=== PATIENT | male | born 1980 | race American Indian/Alaskan Native ===

== ENCOUNTER 2019-12-01 13:12 | Emergency (ER) | payer SELFPAY ==
--- NOTE | 2019-12-01 14:03 | Event Note ---
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 Further treatment and workup at subsequent clinical providers discretion. Patient/guardian urged not to elope from the ED as their condition may be serious if not clinically assessed and managed. Initial orders include: xr
[2019-12-01 14:04] VITALS: BP 140/80
--- NOTE | 2019-12-01 17:40 | Emergency Department Report ---
Upper Extremity - HPI Chief Complaint: Extremity Injury, Upper Stated Complaint: RT WRIST PAINS Time Seen by Provider: 12/01/19 14:00 Other History: Patient is a 39-year-old male presents emergency room with complaints of right wrist pain that began 2 days ago. He denies any fall or injury. 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 He states that he has had this wrist pain in the past that comes and goes. He denies any numbness or weakness. He denies ever fracturing this wrist in the past or having surgeries on the wrist. No past medical history. No allergies to medications. ED Review of Systems ROS: Stated complaint: RT WRIST PAINS Other details as noted in HPI Comment: All other systems reviewed and negative ED Past Medical Hx - Past Medical History Previous Medical History?: No - Surgical History Past Surgical History?: No - Social History Smoking Status: Current Every Day Smoker - Medications Home Medications: Home Medications Medication Instructions Recorded Confirmed Last Taken Type Ibuprofen [Motrin] 800 mg PO Q8H #30 tablet 12/03/13 Unknown Rx methOCARBAMOL [Robaxin] 500 mg PO BID #30 tab 12/03/13 Unknown Rx traMADoL [Ultram 50 MG tab] 50 mg PO Q6HR PRN #30 tablet 12/03/13 Unknown Rx Naproxen [EC-Naproxen] 500 mg PO BID PRN #14 tablet. 12/01/19 Unknown Rx Upper Extremity Exam - Exam General: Vital signs noted. No distress. Alert and acting appropriately. Arm Exam: No Arm/Humerus Tenderness, No Arm Deformity Elbow: Yes Normal Range of Motion in Elbow, No Elbow Tenderness, No Elbow Deformity Forearm: No Forearm Tenderness, No Forearm Deformity, No Pain with Pronation, No Pain with Supination Wrist: Yes Wrist Tenderness (mild right medial wrist ttp, no lateral wrist ttp, no snuffbox ttp, no deformity, no edema, no increased warmth, no erythema, no skin changes, FROM of the right wrist, neurovascularly intact), Yes Normal ROM in Wrist, No Wrist Deformity, No Snuffbox Tenderness, No Pain with Axial Thumb Compression Hand: Yes Normal ROM in Digit(s), No Hand Tenderness, No Hand Deformity, No Digit Tenderness, No Digit(s) Deformity, No Tendon Dysfunction CMS Exam: Yes Normal Distal Pulses, Yes Normal Capillary Refill, Yes Normal Distal Sensation, No Broken Skin ED Course Vital Signs 12/01/19 14:03 Temperature 98.9 F Pulse Rate 58 L Respiratory 18 Rate Blood Pressure 140/80 O2 Sat by Pulse 100 Oximetry ED Medical Decision Making - Radiology Data Radiology results: report reviewed - Medical Decision Making Patient is a 39-year-old male presents emergency room with complaints of right wrist pain that began 2 days ago. He denies any fall or injury. 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 He states that he has had this wrist pain in the past that comes and goes. He denies any numbness or weakness. He denies ever fracturing this wrist in the past or having surgeries on the wrist. No past medical history. No allergies to medications. VSS. on exam: mild right medial wrist ttp, no lateral wrist ttp, no snuffbox ttp, no deformity, no edema, no increased warmth, no erythema, no skin changes, FROM of the right wrist, neurovascularly intact. Examination appears most consistent with tendinitis. Patient has had no trauma. He has no clinical signs of gout or septic arthritis. He has full range of motion. Patient placed in Robert wrap by retail district manager and remained neurovascularly intact. Patient given prescription for naproxen. Patient will be referred to orthopedic doctor for further evaluation. Advised patient Please take medication as prescribed as needed. Please do not wear Robert bandage too tightly and do not wear at night. May use ice for 15 minutes at a time, rest, soak in Epsom salt. Follow-up with a primary care doctor. Follow-up with an orthopedic doctor. Return to emergency room for any new or worsening symptoms. - Differential Diagnosis Strain, sprain, fracture, dislocation, tendinitis, arthritis, carpal tunnel Critical care attestation.: If time is entered above; I have spent that time in minutes in the direct care of this critically ill patient, excluding procedure time. ED Disposition Clinical Impression: Right wrist pain Disposition: DC-01 TO HOME OR SELFCARE Is pt being admited?: No Does the pt Need Aspirin: No Condition: Stable Instructions: Arthralgia (ED), Tendinitis (ED) Additional Instructions: Please take medication as prescribed as needed. Please do not wear Robert bandage too tightly and do not wear at night. May use ice for 15 minutes at a time, rest, soak in Epsom salt. Follow-up with a primary care doctor. Follow-up with an orthopedic doctor. Return to emergency room for any new or worsening symptoms. Prescriptions: Naproxen [EC-Naproxen] 500 mg PO BID PRN #14 tablet.dr [id number] Reason: pain Referrals: PRIMARY CARE, [Primary Care Provider] - 2-3 Days WIN KELLY MD [Staff Physician] - 2-3 Days [facility] [Provider Group] - 2-3 Days DANIELLE CASILLAS MD [Staff Physician] - 2-3 Days [facility] [Provider Group] - 2-3 Days Time of Disposition: 17:39 Print Language: SLOV[place]
== END 2019-12-01 18:30 | disposition home or self-care (01) ==
LOC: ED 13:12
DX: M25.531 Pain in right wrist (principal); F17.200 Nicotine dependence, unspecified, uncomplicated; Z79.899 Other long term (current) drug therapy; Z91.013 Allergy to seafood
CPT/HCPCS: 99282